=== PATIENT | female | born 1970 | race African-American/Black ===

== ENCOUNTER 2018-02-07 09:42 | Day surgery (SDC) | payer BC ==
[2018-02-05 12:15] VITALS: BMI 21.9
[2018-02-07] MEDS ORDERED: MIDAZOLAM HCL 2 MG/2 ML SINGLE DOSE VIAL ONE (11:22)
[2018-02-07] MEDS ORDERED: ONDANSETRON 4 MG/2 ML VIAL IVPUSH PRN (11:27)
[2018-02-07] MEDS ORDERED: PROMETHAZINE HCL 25 MG/1 ML VIAL IVPUSH PRN (11:27)
[2018-02-07] MEDS ORDERED: oxyCODONE HCL 5 MG TABLET PO PRN (11:27)
[2018-02-07] MEDS ORDERED: BUPIVACAINE HCL/PF 0.5% (5MG/ML) 10 ML VIAL ONE (11:32)
[2018-02-07] MEDS ORDERED: DEXAMETHASONE SOD PHOSPHATE 4 MG/1 ML VIAL ONE (11:32)
[2018-02-07] MEDS ORDERED: LIDOCAINE HCL 1%, 10 MG/ML (20ML VIAL) ONE ×2 (11:32→11:33)
[2018-02-07] MEDS ORDERED: BUPIVACAINE HCL/PF (5 MG/ML) 30 ML VIAL IJ ONE (11:45)
[2018-02-07] MEDS ORDERED: BUPIVACAINE HCL/PF 0.5% (5MG/ML) 10 ML VIAL IJ ONE (12:30)
--- NOTE | 2018-02-07 12:59 | OP ---
Operative Note - Note: Operative Date: 02/07/18 Pre-Operative Diagnosis: Painful right 2nd and 5th hammertoes with exostosis Operation: Arthroplasty right 2nd toe, Arthroplasty and hemiarthroplasty right 5th toe Findings: Hypertrophic bone and exostosis. Surgeon: Herminia Leon
[2018-02-07] MEDS ORDERED: PROPOFOL 20 ML ONE ×2 (13:52)
[2018-02-07 14:34] VITALS: TEMP 97.5
[2018-02-07 14:39] VITALS: BP 127/79; PULSE 77
--- NOTE | 2018-02-07 23:07 | OP ---
DATE OF OPERATION: 02/07/2018 SURGEON: Herminia Leon DPM TOWER HOIST OPERATOR: Jarad Bundy DPM, Dr. Brand PREOPERATIVE DIAGNOSIS: Hammertoe right second and 5th toes, exostosis right 5th toe. POSTOPERATIVE DIAGNOSIS: Hammertoe right second and 5th toes, exostosis right 5th toe. PATHOLOGY: Bone. OPERATIVE PROCEDURE: Arthroplasty of right 2nd toe and hemiarthroplasty of right 5th toe and arthroplasty of right 5th toe. ANESTHESIA: Local with IV sedation. HEMOSTASIS: Pneumatic ankle tourniquet. ESTIMATED BLOOD LOSS: Minimal. INJECTABLES: None. COMPLICATIONS: None. OPERATIVE PROCEDURE: The patient was brought to the operating room and placed on the operating table in the supine position. A pneumatic ankle tourniquet was then placed on the patient's right ankle. Following IV sedation, local anesthesia was obtained utilizing 7 mL of 1 to 1 mixture of 1% lidocaine plain and 0.5% Marcaine plain. The right foot was then scrubbed, prepped, and draped in the usual aseptic manner. An Esmarch bandage was then utilized to exsanguinate the patient's right foot, and a tourniquet was inflated. Attention was directed to the 2nd digit, where a 2-cm semi-elliptical incision was made over the dorsal aspect of the proximal interphalangeal joint of the digit. The incision was deepened through the subcutaneous tissue with care to retract all vital neurovascular structures. The ellipse was removed with sharp and blunt dissection. All bleeders were cauterized and ligated. A transverse tenotomy and capsulotomy was performed to the proximal interphalangeal joint of the 2nd digit of the right foot. The head of the proximal phalanx was then freed of its soft tissue attachment which were noted to be quite hypertrophic. A double action bone cutter was then used to resect the head of the proximal phalanx which was then passed from the operating room table. A bone rasp was then used to smooth the remaining bone. At this point, attention was then directed to the right 5th toe where a 1.5 cm semielliptical incision was made running dorsal distal medial to proximal lateral over the proximal interphalangeal joint in the middle phalanx. Incision was then deepened through subcutaneous tissues with care to retract all neurovascular structures. The ellipse was removed with sharp and blunt dissection. All bleeders were cauterized and ligated. A transverse tenotomy and capsulotomy was performed to the proximal interphalangeal joint of the 5th digit of the right foot. The head of the proximal phalanx was then freed of its soft tissue attachment. A double action bone cutter was then used to resect the head of the proximal phalanx and was then passed from the operating room table. The phalanx was then smoothed of its rough edges with a bone rasp. It was also noted a prominence of bone was felt and visualized on the middle phalanx. Hemiarthroplasty was performed on the lateral aspect of the middle phalanx. This was then smoothed with a bone rasp and flushed with saline. The right 2nd digit was also flushed with copious amounts of sterile saline. Extensor of the right 2nd toe and the right 5th toe was then reapproximated with 3-0 Vicryl. The skin was then reapproximated with 4-0 nylon. Upon completion of the procedure, a total of 5 mL of 1 to 5 mixture of 1 mL dexamethasone phosphate and 4 mL 0.5% Marcaine were infiltrated around the surgical site. The incision was dressed with Betadine soaked Adaptic and recovered with sterile compressive dressings such as 4x4s and Renee. The tourniquet was desufflated and immediate hyperemia returned to all digits of the right foot. Coban was applied followed by an Karel bandage. The patient tolerated the procedure well and was transferred to the ambulatory surgical unit with all vital signs stable and vascular status intact to the feet. Following postoperative monitoring, the patient will be discharged and given instructions which were discussed prior to the surgery. SHIRA COLEMAN/[id number]
--- NOTE | 2018-02-09 16:04 | PATH ---
Surgical Pathology Report Patient Name: REJI CAMARGO [facility]. Rec. #: [id number] /Age/Gender: 1970 (Age: 48) / F Account: [id number] Location: [facility] SURGICAL Taken: 02/07/2018 Received: 02/07/2018 Reported: 02/09/2018 Physicians: Herminia Leon DPM Specimen(s) Received BONE 2ND AND 5TH DIGIT Clinical History Hammertoe, exostosis Final Diagnosis BONE SECOND AND FIFTH TOES, RIGHT, EXCISION: FRAGMENTS OF BONE WITH FATTY MARROW SHOWING DEGENERATIVE CHANGE. SEGMENTS OF SKIN WITH HYPERKERATOSIS. Electronically Signed Yoni Mccabe M.D. Gross Description Received in formalin labeled "bone right second, fifth toes," are 3 martins-yellow portions of bone ranging from 0.8 x 0.5 x 0.4 cm to 1.0 x 0.8 x 0.5 cm. Also received within the same container are 2 martins, elliptical skin shaves measuring 1.5 x 0.5 cm and 2.0 x 0.8 cm. Air Pollution Inspector sections are submitted in one cassette following decalcification. /02/08/2018 [place]/02/08/2018
== END 2018-02-07 14:00 | disposition home or self-care (01) ==
LOC: JASU-SURG 09:42
PROVIDERS: ATTEND Podiatrist Foot Surgery
PROC: 0SRP0JZ Replacement of Right Toe Phalangeal Joint with Synthetic Substitute, Open Approach (ICD-10-PCS; principal; 2018-02-07 11:00)
DX: M20.41 Other hammer toe(s) (acquired), right foot (principal); M89.9 Disorder of bone, unspecified
CPT/HCPCS: 73630-TC-RT-FY; 84703; 88304-TC; 88311-TC; 97116-GP

== ENCOUNTER 2018-03-20 11:57 | Emergency (ER) | payer BC ==
[2018-03-20 12:04] VITALS: BP 118/94; PULSE 97; TEMP 98.2; BMI 21.5
[2018-03-20] MEDS ORDERED: IBUPROFEN 400 MG TABLET (FP) PO ONE ×2 (13:44→13:46)
--- NOTE | 2018-03-20 13:44 | PDOC ---
History of Present Illness - General Chief Complaint: Pain, Acute Stated Complaint: PAIN, RT SHOULDER Time Seen by Provider: 03/20/18 13:26 History Source: Patient Exam Limitations: No Limitations - History of Present Illness Occurred: reports: just prior to arrival Severity: reports: mild, moderate Pain Location: reports: upper extremity (right shoulder ) Method of Injury: Yes: unknown Modifying Factors: improves with: None Loss of Consciousness: no loss of consciousness Associated Symptoms (Fall): denies symptoms Past History - Travel Traveled outside of the country in the last 30 days: No Close contact w/someone who was outside of country & ill: No - Past Medical History Allergies/Adverse Reactions: Allergies Allergy/AdvReac Type Severity Reaction Status Date / Time No Known Allergies Allergy Verified 02/07/18 10:24 Home Medications: Ambulatory Orders Cyclobenzaprine HCl 10 mg PO Q8H PRN #14 tablet 03/20/18 Naproxen [Naprosyn -] 500 mg PO BID #30 tablet 03/20/18 Anemia: No Asthma: Yes Cancer: No Cardiac Disorders: No CVA: No COPD: No CHF: No Dementia: No Diabetes: No GI Disorders: No Disorders: No HTN: No Hypercholesterolemia: No Liver Disease: No Seizures: No Thyroid Disease: No - Surgical History Abdominal Surgery: Yes Orthopedic Surgery: Yes (right shoulder rotator cuff tear) - Immunization History Immunization Up to Date: Yes - Suicide/Smoking/Psychosocial Hx Smoking Status: Yes Smoking History: Current some day smoker Have you smoked in the past 12 months: Yes Number of Cigarettes Smoked Daily: 10 Information on smoking cessation initiated: No 'Breaking Loose' booklet given: 02/07/18 Hx Alcohol Use: No Drug/Substance Use Hx: No Substance Use Type: Alcohol Hx Substance Use Treatment: No Review of Systems - Review of Systems Able to Perform ROS?: Yes Is the patient limited Georgian proficient: Yes Constitutional: Yes: Symptoms Reported, See HPI, Malaise HEENTM: Yes: See HPI. No: Symptoms Reported Respiratory: Yes: See HPI. No: Symptoms reported Musculoskeletal: Yes: Symptoms Reported, See HPI, Joint Pain, Joint Swelling Integumentary: Yes: See HPI. No: Symptoms Reported Neurological: Yes: See HPI. No: Symptoms reported *Physical Exam - Vital Signs Last Vital Signs Temp Pulse Resp BP Pulse Ox 98.2 F 97 H 16 118/94 99 03/20/18 12:01 03/20/18 12:01 03/20/18 12:01 03/20/18 12:01 03/20/18 12:01 - Physical Exam General Appearance: Yes: Nourished, Appropriately Dressed, Apparent Distress, Mild Distress HEENT: positive: EOMI, NICOLAS, Normal ENT Inspection, TMs Normal, Pharynx Normal Neck: positive: Tender (tenderness reproduced with palpation to the left sternocleidomastoid at occiput which reproduces pain to scalp and neck. Inferior insertion pressure re-exacerbates pain along right arm), Supple. negative: Lymphadenopathy (R), Lymphadenopathy (L) Respiratory/Chest: positive: Lungs Clear, Normal Breath Sounds Cardiovascular: positive: Regular Rhythm Gastrointestinal/Abdominal: positive: Soft Musculoskeletal: positive: Normal Inspection, Muscle Spasm Extremity: positive: Normal Capillary Refill, Normal Inspection. negative: Normal Range of Motion (somewhat limited secondary to tenderness reproduced with abduction past 90 to right arm and shoulder. Has strong flexion and extension and no pain reproduced against resistance.) Integumentary: positive: Normal Color, Dry, Warm, Pale Neurologic: positive: chart computer II-XII NML intact, Fully Oriented, Alert, Normal Mood/ Affect, Normal Response, Motor Strength 5/5 Moderate Sedation - Procedure Monitoring Vital Signs: Procedure Monitoring Vital Signs Temperature 98.2 F 03/20/18 12:01 Pulse Rate 97 H 03/20/18 12:01 Respiratory Rate 16 03/20/18 12:01 Blood Pressure 118/94 03/20/18 12:01 O2 Sat by Pulse Oximetry (%) 99 03/20/18 12:01 Progress Note - Progress Note Progress Note: Cervical strain, we'll treat with NSAIDs and cyclobenzaprine *DC/Admit/Observation/Transfer Diagnosis at time of Disposition: Cervical muscle strain Qualifiers: Encounter type: initial encounter Qualified Code(s): S16.1XXA - Strain of muscle, fascia and tendon at neck level, initial encounter - Discharge Dispostion Disposition: HOME Condition at time of disposition: Stable Decision to Admit order: No - Referrals Referrals: Antione Mortensen MD, MD [Primary Care Provider] - - Patient Instructions Printed Discharge Instructions: DI for Cervical Muscle Strain Additional Instructions: Rest, no heavy lifting or exercise until pain is resolved Hot soaks to neck and low back as often as possible/hot showers or Jacuzzis No massage or therapy until spasm is gone Continue Naprosyn 500 mg tablet, 1 tablet every 12 hours for the next 3 days then as needed for pain and swelling Cyclobenzaprine 1-10mg every 8 hours as needed for spasm If not significant improvement within 24 hours with medication and rest regime, followup with private physician for change in medications and /or therapy. - Post Discharge Activity
== END 2018-03-20 13:51 | disposition home or self-care (01) ==
LOC: JERFT 11:57
DX: S16.1XXA Strain of muscle, fascia and tendon at neck level, initial encounter (principal); X58.XXXA Exposure to other specified factors, initial encounter; Y93.89 Activity, other specified; Y92.89 Other specified places as the place of occurrence of the external cause; Y99.8 Other external cause status
CPT/HCPCS: 99281-25

== ENCOUNTER 2021-07-14 19:48 | Emergency (ER) | payer OTHER, BC ==
[2021-07-14 20:08] VITALS: BP 146/99; PULSE 73; TEMP 97.9; BMI 21.0
[2021-07-14] MEDS ORDERED: CYCLOBENZAPRINE HCL 10 MG TABLET (FP) ONE (23:17)
[2021-07-14] MEDS ORDERED: CYCLOBENZAPRINE HCL 10 MG TABLET (FP) PO ONE (23:17)
== END 2021-07-14 23:19 | disposition home or self-care (01) ==
LOC: JER 19:48 → JERFT 19:48
DX: S16.1XXA Strain of muscle, fascia and tendon at neck level, initial encounter (principal); S39.012A Strain of muscle, fascia and tendon of lower back, initial encounter; V49.40XA Driver injured in collision with unspecified motor vehicles in traffic accident, initial encounter
CPT/HCPCS: 70450-TC; 72050-TC-FY; 72100-TC-FY; 99284-25

== ENCOUNTER 2022-03-02 18:00 | Emergency (ER) | payer BC, OTHER ==
[2022-03-02 19:11] VITALS: BP 122/89; PULSE 90; RESP 17; TEMP 98.6; BMI 21.9
[2022-03-02] MEDS ORDERED: MAG HYDROX/AL HYDROX/SIMETH 30 ML UNIT-DOSE CUP PO ONE (21:23)
[2022-03-02] MEDS ORDERED: FAMOTIDINE 20 MG/50 ML IVPB 20 MG/50 ML MG IVPB ONE ×2 (21:23→21:40)
[2022-03-02] MEDS ORDERED: ACETAMINOPHEN 1000 MG/100 ML BAG IVPB ONE (21:23)
[2022-03-02] MEDS ORDERED: SIMETHICONE 80 MG TAB.CHEW (FP) PO ONE (21:24)
[2022-03-02] MEDS ORDERED: ACETAMINOPHEN INJECTION 100 ML IVPB ONE (21:39)
[2022-03-02] MEDS ORDERED: SIMETHICONE 80 MG TAB.CHEW (FP) ONE (21:39)
[2022-03-02 22:15] LABS: BASO % 0.5 % (0-2.0); EOS % 0.8 % (0-4.5); HEMATOCRIT 44.6 % (32.4-45.2); HEMOGLOBIN 15.7 GM/dL (10.7-15.3); LYMPH % 32.3 % (8-40); MCH 34.2 pg (25.7-33.7); MCHC 35.2 g/dl (32.0-36.0); MEAN CELL VOLUME 97.3 fl (80-96); MEAN PLT VOLUME 7.4 fl (7.5-11.1); MONO % 6.4 % (3.8-10.2); PLATELET COUNT 349 10^3/uL (134-434); RBC 4.58 M/mm3 (3.60-5.2); RDW 12.1 % (11.6-15.6); WHITE BLOOD COUNT 10.7 K/mm3 (4.0-10.0)
[2022-03-02 22:15] LABS: CALCIUM 9.8 mg/dL (8.5-10.1)
[2022-03-02 22:16] LABS: ALBUMIN 4.4 g/dl (3.4-5.0); BLOOD UREA NITROGEN 14.2 mg/dL (7-18)
[2022-03-02] MEDS ORDERED: SODIUM CHLORIDE 0.9% 500 ML INFUS.BAG IV ONE (22:17)
[2022-03-02 22:18] LABS: CREATININE 0.7 mg/dL (0.55-1.3)
[2022-03-02 22:18] LABS: INR 1.03 (0.83-1.09); PROTHROMBIN TIME (PATIENT) 11.9 SEC (9.7-13.0)
[2022-03-02 22:20] LABS: ACTIVATED PTT 35.6 SECONDS (25.2-36.5)
[2022-03-02 22:20] LABS: TOT PROT 7.8 g/dl (6.4-8.2)
[2022-03-02 23:19] LABS: BILIRUBIN,TOTAL 0.6 mg/dL (0.2-1)
[2022-03-03 01:51] LABS: PH,URINE 6.5 (5.0-8.0); URINE APPEARANCE CLEAR; URINE BILIRUBIN NEGATIVE (NEGATIVE); URINE COLOR YELLOW; URINE GLUCOSE (UA) NEGATIVE (NEGATIVE); URINE KETONE NEGATIVE (NEGATIVE); URINE PROTEIN NEGATIVE (NEGATIVE)
[2022-03-03 01:52] LABS: URINE LEUK ESTERASE NEGATIVE (NEGATIVE); URINE NITRITE NEGATIVE (NEGATIVE); URINE UROBILINOGEN 0.2 mg/dL (0.2-1.0)
== END 2022-03-03 01:57 | disposition left against medical advice (07) ==
LOC: JER 18:00
PROC: 3E0333Z Introduction of Anti-inflammatory into Peripheral Vein, Percutaneous Approach (ICD-10-PCS; principal; 2022-03-02)
PROC: 3E033GC Introduction of Other Therapeutic Substance into Peripheral Vein, Percutaneous Approach (ICD-10-PCS; 2022-03-02)
DX: R10.9 Unspecified abdominal pain (principal)
CPT/HCPCS: 36415; 74177-TC; 76705-TC; 80053; 81003; 83690; 84484; 85025; 85610; 85730; 87086; 93005; 93010; 99285-25